=== PATIENT | male | born 1995 | race Caucasian/White ===

== ENCOUNTER 2023-11-21 13:06 | Emergency (ER) | payer BC, SELFPAY ==
[2023-11-21 13:07] VITALS: BP 128/89; PULSE 70; RESP 18; TEMP 36.1; O2SAT 100; BMI 34.0
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
[2023-11-21] MEDS: Acetaminophen 325 MG Tablet PO (14:02)
[2023-11-21 14:52] VITALS: BP 126/78; PULSE 62; RESP 18; TEMP 36.6; O2SAT 100
== END 2023-11-21 14:54 | disposition home or self-care (01) ==
PROVIDERS: Emergency Provider Emergency Medicine; Visit Provider Emergency Medicine
DX: S40.012A Contusion of left shoulder, initial encounter (principal); S80.02XA Contusion of left knee, initial encounter; V43.52XA Car driver injured in collision with other type car in traffic accident, initial encounter
CPT/HCPCS: 70450; 72125; 72128; 72131; 73030; 73560; 99282